=== PATIENT | male | born 1960 | race Caucasian/White ===

== ENCOUNTER 2022-12-29 09:22 | Emergency (ER) | payer BC, SELFPAY ==
--- NOTE | 2022-12-29 09:29 | ED.GENADULT ---
HPI - General Adult General Chief complaint: Upper Respiratory Infection Stated complaint: Headache;Stomach pain Time Seen by Provider: 12/29/22 09:37 Source: patient, RN notes reviewed and old records reviewed Mode of arrival: ambulatory Limitations: no limitations History of Present Illness HPI narrative: 62-year-old male presents to the [facility] with complaints of dizziness. States it feels like the room is spinning. Symptoms started last night. States he has history of ear issues but denies any history of vertigo. Endorses light sensitivity, nausea. States that any time he moves or walks that the dizziness and room spinning gets worse. Patient denies any chest pain, abdominal pain. Patient denies any shortness of breath or fevers. No recent sick contacts. Denies any cardiac history. No treatment prior to arrival Patient is neurologically intact with no weakness. Sensation equally bilaterally. Facial symmetry noted. Onset (ago): hour(s) (12-18) Treatments prior to arrival: none Related Data Home Medications Medication Instructions Recorded Confirmed allopurinol 300 mg tablet 300 mg PO DAILY 12/29/22 12/29/22 finasteride 5 mg tablet 5 mg PO DAILY 12/29/22 12/29/22 pantoprazole 40 mg tablet,delayed 40 mg PO DAILY 12/29/22 12/29/22 release Allergies Allergy/AdvReac Type Severity Reaction Status Date / Time erythromycin base Allergy Rash Verified 12/29/22 09:37 Review of Systems Review of Systems: All systems reviewed & are unremarkable except as noted in HPI and below Constitutional: Constitutional: Reports no additional constitutional complaints Eyes: Eyes: Reports no additional eye complaints ENT: Reports system reviewed and no additional complaints, except as documented Cardiovascular: Cardiovascular: Reports no additional cardiovascular complaints, Denies chest pain and Denies dyspnea Respiratory: Respiratory: Reports no additional respiratory complaints, Denies chest congestion, Denies cough and Denies dyspnea Gastrointestinal: Gastrointestinal: Reports no additional gastrointestinal complaints, Denies abdominal pain, Denies nausea and Denies vomiting Musculoskeletal: Musculoskeletal: Reports no additional musculoskeletal complaints Integumentary/Breasts: Skin/Breast: Reports system reviewed and no additional complaints, except as docu Neurologic: Reports as per HPI, Reports dizziness, Reports headache(s), Denies Sensory deficit (Neuro), Denies tingling and Denies paresthesias Psychiatric: Psychiatric: Reports no additional psychiatric complaints Allergic/Immunologic: Allergic/Immunologic: Reports no additional allergic/immunologic complaints PMFSH Past Medical History Medical History Erectile dysfunction H/O gastroesophageal reflux (GERD) Comments At the time of my signature, I reviewed and agree with the nursing past medical, surgical, social, and family history. There is no relevant family history pertinent to the patient complaint. Exam Const: General: cooperative, healthy appearing, no acute distress, well developed, alert, uncomfortable, well groomed and well nourished Nutritional Appearance: well nourished Orientation/consciousness: patient oriented x3 Limitations: no limitations HENMT: Head: normal to inspection Ears: hearing grossly normal bilaterally, external ears normal, TM's normal bilaterally, EAC's normal, mastoids normal and no periauricular adenopathy Face/Nose/Sinus: Normal external nose present, Normal nares present, Normal nasal mucous membranes and turbinates present, normal facial exam, face symmetric and No sinus tenderness Face and sinus: normal facial exam and face symmetric Mouth: Yes Normal oral and palatal mucosa present, Yes lip normal and Yes moist mucous membranes Throat: posterior oropharynx normal and uvula midline Eyes: General: appearance normal, both eyes and all related structures Alignment an
[2022-12-29 09:37] VITALS: BP 138/84; PULSE 64; RESP 16; TEMP 36.4; O2SAT 98
--- NOTE | 2022-12-29 09:45 | ECG_ITS ---
Measurements Intervals [place] Rate: 57 P: 21 MA: 204 QRS: 1 QRSD: 85 T: 35 QT: 400 QTc: 392 Interpretive Statements SINUS BRADYCARDIA BORDERLINE ECG NO PREVIOUS ECG AVAILABLE FOR COMPARISON Electronically Signed On 12-29-2022 14:40:10 CDT by Winston Thomas M.D.
== END 2022-12-29 09:55 | disposition short-term general hospital (02) ==
PROVIDERS: Emergency Provider Nurse Practitioner
DX: R42 Dizziness and giddiness (principal); K21.9 Gastro-esophageal reflux disease without esophagitis
CPT/HCPCS: 93005; 99213; G0463

== ENCOUNTER 2022-12-29 10:20 | Emergency (ER) | payer BC, SELFPAY ==
[2022-12-29] VITALS (20 sets, daily range): BP systolic 114–143; BP diastolic 70–78; PULSE 63–92; RESP 12–20; TEMP 36.2; O2SAT 94–100
--- NOTE | ~2022-12-29 | CT_ITS ---
EXAMINATION: CTA brain carotid DATE: 12/29/2022 13:52 INDICATION: vertigo TECHNIQUE: Computed tomographic angiography (CTA) of the head was performed without and with 100 mL O mnipaque-350 intravenous contrast. CTA of the neck was performed with intravenous contrast. Automated exposure control and iterative reconstruction technique were employed. The dose-length product was 1 825.87 mGy-cm. Maximum intensity projection and volume rendered 3D-reconstructions were created by blayne witt technologist on a separate workstation. COMPARISON: None. FINDINGS: CT BRAIN: No acute large vessel infarct, intracranial hemorrhage, mass, or hydrocephalus. CTA HEAD: No large vessel occlusion, aneurysm, high flow vascular malformation, nidus or extravasation. CTA NECK: Aortic arch and proximal great vessels: Atherosclerotic calcifications at the visualized aortic arch and proximal great vessels. Right common carotid, carotid bifurcation, and internal carotid artery: No plaque.There is 0% stenosi s of the proximal right internal carotid artery relative to normal distal artery lumen diameter (NASC ET criteria). Left common carotid, carotid bifurcation, and internal carotid artery: Mild calcified plaque.There is 0% stenosis of the proximal left internal carotid artery relative to normal distal artery lumen diam eter (NASCET criteria). Vertebral arteries: No significant plaque or stenosis. Left vertebral artery is dominant. Other findings: Multinodular goiter, largest nodule measuring up to 3.5 cm. IMPRESSION: No acute large vessel infarct or acute intracranial hemorrhage. No large vessel occlusion. No significant carotid or vertebral artery stenosis. Multiple thyroid nodules measuring up to 3.5 cm, recommend outpatient thyroid ultrasound for further characterization. Reviewed, dictated and finalized at location K. IMPRESSION: No acute large vessel infarct or acute intracranial hemorrhage. No large vessel occlusion. No significant carotid or vertebral artery stenosis. Multiple thyroid nodules measuring up to 3.5 cm, recommend outpatient thyroid u ltrasound for further characterization.
--- NOTE | 2022-12-29 11:24 | ECG_ITS ---
Measurements Intervals [place] Rate: 77 P: 46 ID: [id number] QRS: 8 QRSD: 90 T: 42 QT: 386 QTc: 438 Interpretive Statements SINUS RHYTHM BASELINE ARTIFACT BORDERLINE ECG COMPARED TO ECG 12/29/2022 09:53:46 HEART RATE HAS INCREASED Electronically Signed On 12-29-2022 14:44:59 CDT by Winston Thomas M.D.
--- NOTE | 2022-12-29 11:28 | ED.DIZZY ---
HPI - Dizziness General Chief Complaint: Dizziness Stated Complaint: dizzy, light sensitive Time Seen by Provider: 12/29/22 10:44 History of Present Illness HPI Narrative: 62-year-old male reports from urgent care for dizziness, nausea and photophobia that started yesterday at 3:30 PM. Patient describes his dizziness as the room room spinning. States the dizziness resolves when he sits still and is worse when he moves his head. He says when he turns to the left the dizziness is worse, when he turns to the right he is less dizzy. He reports associated nausea, no emesis. He denies chest pain, shortness of breath, palpitations, fever. He does report associated tinnitus in his bilateral ears. 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 He denies fever, otalgia, vision changes, focal numbness or weakness, history of CVA, history of M?ni?re's disease, URI symptoms or recent illness. He does report slight headaches which she has been attributing to allergies. Patient states he had an episode of dizziness 2 years ago and was evaluated by an ENT and had head scans that were normal. He states the dizziness eventually went away, however this vertigo is different from those symptoms. Related Data Home Medications Medication Instructions Recorded Confirmed allopurinol 300 mg tablet 300 mg PO DAILY 12/29/22 12/29/22 finasteride 5 mg tablet 5 mg PO DAILY 12/29/22 12/29/22 pantoprazole 40 mg tablet,delayed 40 mg PO DAILY 12/29/22 12/29/22 release Allergies Allergy/AdvReac Type Severity Reaction Status Date / Time erythromycin base Allergy Rash Verified 12/29/22 10:41 Review of Systems Review of Systems: CONSTITUTIONAL: Denies fever, chills EYES: Denies visual changes, redness, or discharge. ENT: See HPI CARDIOVASCULAR: Denies chest pain, palpitations, or edema. RESPIRATORY: Denies cough or dyspnea. GASTROINTESTINAL: Denies abdominal pain, nausea, vomiting, or diarrhea. GENITOURINARY: Denies dysuria or hematuria. SKIN: Denies rash or itching. MUSCULOSKELETAL: Denies back pain, joint pain, or myalgia. NEUROLOGIC: See HPI PSYCHIATRIC: Denies anxiety or depression. [facility] Past Medical History Medical History Erectile dysfunction H/O gastroesophageal reflux (GERD) Exam Narrative: GENERAL: Well-appearing, in no acute distress. HEAD: Normocephalic EYES: PERRLA, EOMI. No nystagmus ENT: Nares clear. Mucous membranes moist. Oropharynx without tonsillar hypertrophy exudate or other lesions. Left TM is caputo nonbulging, there is mild tympanosclerosis. Right TM is caputo and nonbulging. Normal canals bilaterally. NECK: Supple. CHEST: No respiratory distress. Clear to auscultation, no adventitious breath sounds. HEART: Regular rate and rhythm. No murmur heard. Normal peripheral pulses. ABDOMEN: Soft, nontender, normal active bowel sounds. EXTREMITIES: Normal range of motion. No edema. SKIN: Warm, dry, no rash. NEURO: No focal deficits. Alert and oriented x3. Cranial nerves II through XII intact. Strength 5/5 in BUE and BLE. Sensation intact throughout. No pronator drift. Normal [id number] bilaterally. PSYCH: Normal mood and affect. Course Vital Signs Vital signs: Vital Signs Temperature 97.2 F L 12/29/22 10:36 Pulse Rate 64 12/29/22 10:36 Respiratory Rate 18 12/29/22 10:36 Blood Pressure 138/71 12/29/22 10:36 Pulse Oximetry 99 12/29/22 10:36 Temperature 97.2 F L 12/29/22 10:36 Pulse Rate 86 12/29/22 15:19 Respiratory Rate 17 12/29/22 15:19 Blood Pressure 122/72 12/29/22 15:19 Pulse Oximetry 98 12/29/22 15:19 MDM - Dizziness MDM Narrative Medical decision making narrative: 62-year-old male reports for evaluation for vertigo, nausea and photophobia since 3:30 PM yesterday. See HPI for further
[2022-12-29] MEDS: SODIUM CHLORIDE 0.9% IV 1,000 ML 999 ML IV CONT (11:40)
[2022-12-29] MEDS: KETOROLAC 30 MG/ML VIAL (*BKC) IV PUSH (11:41)
[2022-12-29] MEDS: PROCHLORPERAZINE EDISYLATE 10 MG/2 ML VIAL IV PUSH (11:41)
[2022-12-29] MEDS: diphenhydrAMINE HCl INJ 50 MG/ML VIAL 25 MG IV PUSH (11:41)
[2022-12-29 11:44] LABS: Basophils Percent Auto 0.3 % (0.2-1.2); Eosinophils Percent Auto 0.1 % (0-4.4); Hematocrit 40.4 % (42.0-52.0); Hemoglobin 13.1 g/dL (14.0-18.0); Immature Granulocyte Absolute 0.03 K/mm3 (0.00-0.031); Immature Granulocyte Percent A 0.3 % (0-0.5); Lymphocytes Absolute Auto 0.62 K/mm3 (0.9-3.2); Lymphocytes Percent Auto 6.6 % (18.3-44.2); Mean Corpuscular HGB Conc 32.4 g/dl (32-36); Mean Corpuscular Volume 98.5 fl (80-100); Mean Platelet Volume 11.1 fl (7.4-10.4); Monocytes Absolute Auto 0.3 K/mm3 (0.1-0.6); Monocytes Percent Auto 3.6 % (2.6-8.5); Neutrophils Absolute Auto 8.3 K/mm3 (1.3-6.7); Neutrophils Percent Auto 89.1 % (45.5-73.1); Platelet Count Result 187 k/mm3 (150-375); Red Cell Distribution Width 12.9 % (11.5-14.5); White Blood Count 9.4 K/mm3 (4.5-10.0)
[2022-12-29 11:51] LABS: Alanine Aminotransferase 21 U/L (6-50); Albumin Level 4.2 g/dL (3.5-5.1); Alkaline Phosphatase 71 U/L (38-126); Anion Gap 4 mmol/L (8-16); Aspartate Amino Transferase 29 U/L (17-59); Bilirubin,Total 0.9 mg/dL (0.2-1.3); Blood Urea Nitrogen 18 mg/dL (9-20); Calcium 9.1 mg/dL (8.4-10.2); Carbon Dioxide 29 mmol/L (22-30); Chloride 103 mmol/L (98-107); Estimated CRCL calculation 72 ml/min; Estimated Glomerular Filt Rate > 60; Glucose 124 mg/dL (65-110); Potassium 4.6 mmol/L (3.4-5.0); Sodium 136 mmol/L (137-145)
[2022-12-29] MEDS: diazePAM INJ (*CRX) 10 MG/2 ML SYRINGE 5 MG IV PUSH (13:10)
== END 2022-12-29 16:01 | disposition home or self-care (01) ==
PROVIDERS: Emergency Provider Physician Assistant
DX: R42 Dizziness and giddiness (principal); Z86.73 Personal history of transient ischemic attack (TIA), and cerebral infarction without residual deficits; Z79.899 Other long term (current) drug therapy
CPT/HCPCS: 36415; 70496; 70498; 80053; 85025; 93005; 96361; 96374; 96375; 99284; J0780; J1200; J1885; J3360; J7030; Q9967